=== PATIENT | male | born 1950 | race Caucasian/White ===

== ENCOUNTER → 2016-10-04 | Outpatient (CLI) | payer MEDICARE ==
[~2016-10-04] MED LIST: ASPI325T4 PO; ATOR10TA9 PO; CARV6.252 PO; LISI-167 PO
== END | disposition home or self-care (01) ==
LOC: WOUND 10:25
PROVIDERS: ATTEND Physician Assistant
DX: T81.31XD Disruption of external operation (surgical) wound, not elsewhere classified, subsequent encounter (principal); I73.9 Peripheral vascular disease, unspecified; I10 Essential (primary) hypertension; A48.0 Gas gangrene; I25.2 Old myocardial infarction; I25.10 Atherosclerotic heart disease of native coronary artery without angina pectoris; E78.5 Hyperlipidemia, unspecified; F17.210 Nicotine dependence, cigarettes, uncomplicated; Z72.89 Other problems related to lifestyle; Y83.8 Other surgical procedures as the cause of abnormal reaction of the patient, or of later complication, without mention of misadventure at the time of the procedure
CPT/HCPCS: 97605

== ENCOUNTER → 2016-10-11 | Outpatient (CLI) | payer MEDICARE | END | disposition home or self-care (01) | LOC: WOUND 09:44 | PROVIDERS: ATTEND Physician Assistant | DX: T81.31XD Disruption of external operation (surgical) wound, not elsewhere classified, subsequent encounter (principal); I73.9 Peripheral vascular disease, unspecified; I25.10 Atherosclerotic heart disease of native coronary artery without angina pectoris; I25.2 Old myocardial infarction; I10 Essential (primary) hypertension; E78.5 Hyperlipidemia, unspecified; F17.210 Nicotine dependence, cigarettes, uncomplicated; Z72.89 Other problems related to lifestyle; Y83.8 Other surgical procedures as the cause of abnormal reaction of the patient, or of later complication, without mention of misadventure at the time of the procedure | CPT/HCPCS: 11042; 11045; 97605 ==

== ENCOUNTER → 2016-10-25 | Outpatient (CLI) | payer MEDICARE | END | disposition home or self-care (01) | LOC: WOUND 10:41 | PROVIDERS: ATTEND Internal Medicine | DX: T81.31XD Disruption of external operation (surgical) wound, not elsewhere classified, subsequent encounter (principal); I73.9 Peripheral vascular disease, unspecified; I25.10 Atherosclerotic heart disease of native coronary artery without angina pectoris; I25.2 Old myocardial infarction; E78.5 Hyperlipidemia, unspecified; E43 Unspecified severe protein-calorie malnutrition; Z68.37 Body mass index [BMI] 37.0-37.9, adult; I11.0 Hypertensive heart disease with heart failure; I50.30 Unspecified diastolic (congestive) heart failure; F17.210 Nicotine dependence, cigarettes, uncomplicated; Z72.89 Other problems related to lifestyle; Y83.8 Other surgical procedures as the cause of abnormal reaction of the patient, or of later complication, without mention of misadventure at the time of the procedure | CPT/HCPCS: 11042; 11045 ==

== ENCOUNTER 2016-10-27 10:01 | Inpatient (IN) | payer MEDICARE ==
[~2016-10-27] VITALS: Ht 180.3 cm; Wt 122.3 kg
[2016-10-27] MEDS ORDERED: SODIUM CHLORIDE 0.9% 1,000 ML IV ONE (11:13)
[2016-10-27] MEDS ORDERED: HYDROmorphone 1 MG/ML, 1ML IVPush PRN (11:30)
[2016-10-27] MEDS ORDERED: ERTAPENEM 1 GM in SODIUM CHLORIDE 0.9% 50 ML IV ONE (11:30)
[2016-10-27] MEDS ORDERED: HYDROmorphone 1 MG/ML, 1ML ONE (12:03)
[2016-10-27 12:34] LABS: ASPARTATE AMINO TRANSFERASE 16 U/L (15-37); BLOOD UREA NITROGEN 17 mg/dL (7-18)
[2016-10-27] MEDS ORDERED: ONDANSETRON 2MG/ML, 2ML ONE (12:40)
[2016-10-27] MEDS ORDERED: ONDANSETRON 2MG/ML, 2ML IVPush ONE (13:00)
[2016-10-27] MEDS ORDERED: POLYETHYLENE GLYCOL 17 GM PACKET PO PRN (14:00)
[2016-10-27] MEDS ORDERED: VANCOMYCIN PER PHARMACY MC PRN (14:00)
[2016-10-27] MEDS ORDERED: ENALAPRILAT 1.25 MG/ML, 2ML IVPush PRN (14:00)
[2016-10-27] MEDS ORDERED: ACETAMINOPHEN 325 MG TABLET PO PRN (14:00)
[2016-10-27] MEDS ORDERED: VANCOMYCIN PMX 1GM/200ML 200 ML IV ONE (14:00)
[2016-10-27] MEDS: SODIUM CHLORIDE 0.9% 1,000 ML IV SCH (15:34)
[2016-10-27] MEDS ORDERED: ENOXAPARIN 40 MG/0.4 ML ONE (15:40)
[2016-10-27] MEDS ORDERED: NICOTINE 21 MG/24 HR PATCH.TD24 ONE (15:40)
[2016-10-27] MEDS: NICOTINE 21 MG/24 HR PATCH.TD24 TD SCH (15:44)
[2016-10-27] MEDS: ENOXAPARIN 40 MG/0.4 ML SQ SCH (15:44)
[2016-10-27] MEDS: AMPICILLIN/SULBACTAM 3 GM in SODIUM CHLORIDE 0.9% 100 ML IV SCH (15:46)
[2016-10-27] MEDS ORDERED: MORPHINE SULFATE 4 MG/ML, 1ML ONE (15:51)
[2016-10-27] MEDS: MORPHINE SULFATE 4 MG/ML, 1ML IVPush PRN ×3 (15:53→23:37)
[2016-10-27 18:04] VITALS: BP 101/65
[2016-10-27 19:43] VITALS: BP 104/62
[2016-10-27] MEDS ORDERED: PHARMACOKINETIC MONITORING MC PRN (20:00)
[2016-10-27] MEDS: ATORVASTATIN 10 MG TABLET PO SCH (21:50)
[2016-10-27] MEDS: CARVEDILOL 6.25 MG TABLET PO SCH (21:50)
[2016-10-27] MEDS: VANCOMYCIN 2,000 MG in SODIUM CHLORIDE 0.9% 500 ML IV SCH (23:29)
[2016-10-28 01:27] VITALS: BP 102/63
[2016-10-28] MEDS: AMPICILLIN/SULBACTAM 3 GM in SODIUM CHLORIDE 0.9% 100 ML IV SCH ×4 (01:35→19:45)
[2016-10-28 05:58] LABS: BLOOD UREA NITROGEN 15 mg/dL (7-18)
[2016-10-28 06:02] LABS: ASPARTATE AMINO TRANSFERASE 13 U/L (15-37)
[2016-10-28 07:24] VITALS: BP 101/62
[2016-10-28] MEDS: LISINOPRIL 5 MG TABLET PO SCH (09:00)
[2016-10-28] MEDS: PANTOPRAZOLE 40 MG IV IVP SCH (09:31)
[2016-10-28] MEDS: CARVEDILOL 6.25 MG TABLET PO SCH ×2 (09:31→19:46)
[2016-10-28] MEDS: ONDANSETRON 2MG/ML, 2ML IVP PRN (09:46)
[2016-10-28] MEDS ORDERED: BUPIVACAINE/PF 0.25% ONE (10:37)
[2016-10-28] MEDS ORDERED: ROPIvacaine/PF 0.5%, 30 ML ONE (10:37)
[2016-10-28] MEDS ORDERED: BUPIVACAINE/PF-EPI 0.25% 1:200K ONE (10:49)
[2016-10-28] MEDS ORDERED: ONDANSETRON 2MG/ML, 2ML ONE (11:15)
[2016-10-28] MEDS ORDERED: ROCURONIUM 10 MG/ML ONE (11:15)
[2016-10-28] MEDS ORDERED: PROPOFOL 10 MG/ML, 20ML ONE (11:15)
[2016-10-28] MEDS ORDERED: NEOSTIGMINE 1 MG/ML, 10ML ONE (11:15)
[2016-10-28] MEDS ORDERED: GLYCOPYRROLATE 0.2MG/1ML ONE (11:15)
[2016-10-28 12:58] VITALS: BP 112/59
[2016-10-28] MEDS: ENOXAPARIN 40 MG/0.4 ML SQ SCH (14:00)
[2016-10-28] MEDS: VANCOMYCIN 2,000 MG in SODIUM CHLORIDE 0.9% 500 ML IV SCH (14:21)
[2016-10-28] MEDS: NICOTINE 21 MG/24 HR PATCH.TD24 TD SCH (14:22)
[2016-10-28] MEDS: SODIUM CHLORIDE 0.9% 1,000 ML IV SCH (15:00)
[2016-10-28 19:20] VITALS: BP 118/67
[2016-10-28] MEDS: ATORVASTATIN 10 MG TABLET PO SCH (19:46)
[2016-10-29 00:05] VITALS: BP 116/70
[2016-10-29] MEDS: AMPICILLIN/SULBACTAM 3 GM in SODIUM CHLORIDE 0.9% 100 ML IV SCH ×4 (02:02→19:41)
[2016-10-29 05:43] LABS: ASPARTATE AMINO TRANSFERASE 13 U/L (15-37); BLOOD UREA NITROGEN 14 mg/dL (7-18)
[2016-10-29 06:33] VITALS: BP 147/70
[2016-10-29] MEDS: PANTOPRAZOLE 40 MG IV IVP SCH (08:44)
[2016-10-29] MEDS: LISINOPRIL 5 MG TABLET PO SCH (08:45)
[2016-10-29] MEDS: CARVEDILOL 6.25 MG TABLET PO SCH ×2 (08:45→21:51)
[2016-10-29] MEDS: VANCOMYCIN 2,000 MG in SODIUM CHLORIDE 0.9% 500 ML IV SCH (10:50)
[2016-10-29 14:28] VITALS: BP 147/79
[2016-10-29] MEDS: NICOTINE 21 MG/24 HR PATCH.TD24 TD SCH (14:47)
[2016-10-29] MEDS: ENOXAPARIN 40 MG/0.4 ML SQ SCH (14:47)
[2016-10-29] MEDS: HYDROcodone/APAP 5/325 TABLET PO PRN (14:47)
[2016-10-29] MEDS: MORPHINE SULFATE 4 MG/ML, 1ML IVPush PRN ×3 (15:19→22:47)
[2016-10-29 21:50] VITALS: BP 139/81
[2016-10-29] MEDS: ATORVASTATIN 10 MG TABLET PO SCH (21:51)
[2016-10-30 00:52] VITALS: BP 126/74
[2016-10-30] MEDS: AMPICILLIN/SULBACTAM 3 GM in SODIUM CHLORIDE 0.9% 100 ML IV SCH ×4 (01:48→21:18)
[2016-10-30 02:15] LABS: BLOOD UREA NITROGEN 15 mg/dL (7-18)
[2016-10-30] MEDS: VANCOMYCIN 2,000 MG in SODIUM CHLORIDE 0.9% 500 ML IV SCH ×2 (02:32→22:02)
[2016-10-30] MEDS: MORPHINE SULFATE 4 MG/ML, 1ML IVPush PRN ×3 (02:32→21:18)
[2016-10-30 07:25] VITALS: BP 145/81
[2016-10-30] MEDS: CARVEDILOL 6.25 MG TABLET PO SCH ×2 (08:34→21:28)
[2016-10-30] MEDS: PANTOPRAZOLE 40 MG IV IVP SCH (08:34)
[2016-10-30] MEDS: LISINOPRIL 5 MG TABLET PO SCH (08:34)
[2016-10-30] MEDS: HYDROcodone/APAP 5/325 TABLET PO PRN ×3 (13:15→22:46)
[2016-10-30] MEDS: NICOTINE 21 MG/24 HR PATCH.TD24 TD SCH (13:16)
[2016-10-30] MEDS: ENOXAPARIN 40 MG/0.4 ML SQ SCH (13:16)
[2016-10-30 13:47] VITALS: BP 128/79
[2016-10-30] MEDS: ONDANSETRON 2MG/ML, 2ML IVP PRN (15:32)
[2016-10-30 20:41] VITALS: BP 132/76
[2016-10-30] MEDS: ATORVASTATIN 10 MG TABLET PO SCH (21:28)
[2016-10-31] MEDS: MORPHINE SULFATE 4 MG/ML, 1ML IVPush PRN ×3 (00:13→20:14)
[2016-10-31] MEDS: AMPICILLIN/SULBACTAM 3 GM in SODIUM CHLORIDE 0.9% 100 ML IV SCH ×4 (02:03→21:27)
[2016-10-31] MEDS: HYDROcodone/APAP 5/325 TABLET PO PRN ×4 (02:55→20:17)
[2016-10-31 03:01] VITALS: BP 127/78
[2016-10-31 08:38] VITALS: BP 148/82
[2016-10-31] MEDS: PANTOPRAZOLE 40 MG IV IVP SCH (08:52)
[2016-10-31] MEDS: LISINOPRIL 5 MG TABLET PO SCH (08:52)
[2016-10-31] MEDS: CARVEDILOL 6.25 MG TABLET PO SCH ×2 (08:53→20:16)
[2016-10-31] MEDS: NICOTINE 21 MG/24 HR PATCH.TD24 TD SCH (14:34)
[2016-10-31] MEDS: ENOXAPARIN 40 MG/0.4 ML SQ SCH (14:35)
[2016-10-31 14:41] VITALS: BP 153/78
[2016-10-31] MEDS: VANCOMYCIN 2,000 MG in SODIUM CHLORIDE 0.9% 500 ML IV SCH (17:39)
[2016-10-31 20:17] VITALS: BP 153/84
[2016-10-31] MEDS: ATORVASTATIN 10 MG TABLET PO SCH (20:17)
[2016-10-31] MEDS: TEMAZEPAM 15 MG CAPSULE PO PRN (22:56)
[2016-10-31] MEDS: metroNIDAZOLE 500 MG TABLET PO SCH (23:16)
[2016-11-01 01:53] VITALS: BP 155/83
[2016-11-01] MEDS: AMPICILLIN/SULBACTAM 3 GM in SODIUM CHLORIDE 0.9% 100 ML IV SCH ×3 (03:00→18:25)
[2016-11-01] MEDS: MORPHINE SULFATE 4 MG/ML, 1ML IVPush PRN ×6 (03:06→23:18)
[2016-11-01 06:43] VITALS: BP 136/73
[2016-11-01] MEDS: metroNIDAZOLE 500 MG TABLET PO SCH ×3 (08:02→20:33)
[2016-11-01] MEDS: LISINOPRIL 5 MG TABLET PO SCH (08:02)
[2016-11-01] MEDS: CARVEDILOL 6.25 MG TABLET PO SCH ×2 (08:02→22:52)
[2016-11-01] MEDS: PANTOPRAZOLE 40 MG IV IVP SCH (08:02)
[2016-11-01] MEDS ORDERED: FENTANYL PF 250 MCG/5ML ONE (10:23)
[2016-11-01] MEDS ORDERED: KETAMINE 10 MG/ML, 20ML ONE (10:23)
[2016-11-01] MEDS ORDERED: MIDAZOLAM 1 MG/ML, 2ML ONE (10:23)
[2016-11-01] MEDS ORDERED: HYDROmorphone 2 MG/ML, 1ML ONE ×3 (10:53→12:18)
[2016-11-01] MEDS ORDERED: hydrALAzine 20 MG/ML, 1ML IV PRN (11:00)
[2016-11-01] MEDS ORDERED: EPHEDRINE 50 MG/ML, 1ML IVPush PRN (11:00)
[2016-11-01] MEDS ORDERED: METOPROLOL 1 MG/ML, 5ML IV PRN (11:00)
[2016-11-01] MEDS ORDERED: ONDANSETRON 2MG/ML, 2ML IVPush PRN (11:00)
[2016-11-01] MEDS ORDERED: MIDAZOLAM 1 MG/ML, 2ML IV PRN (11:00)
[2016-11-01] MEDS ORDERED: ACETAMINOPHEN 325 MG TABLET PO PRN (11:00)
[2016-11-01] MEDS ORDERED: GLYCOPYRROLATE 0.2MG/1ML ONE (11:15)
[2016-11-01] MEDS ORDERED: NEOSTIGMINE 1 MG/ML, 10ML ONE (11:15)
[2016-11-01] MEDS ORDERED: ONDANSETRON 2MG/ML, 2ML ONE (11:15)
[2016-11-01] MEDS ORDERED: ROCURONIUM 10 MG/ML ONE (11:15)
[2016-11-01] MEDS ORDERED: PROPOFOL 10 MG/ML, 20ML ONE (11:15)
[2016-11-01] MEDS ORDERED: PROMETHAZINE 25 MG/ML, 1ML ONE (11:35)
[2016-11-01] MEDS ORDERED: FENTANYL PF 100 MCG/2ML ONE ×2 (11:35→12:18)
[2016-11-01] MEDS ORDERED: OXYcodone 5 MG/5 ML ORAL.SOL UDC ONE (11:36)
[2016-11-01] MEDS: FENTANYL PF 100 MCG/2ML IV PRN ×4 (11:53→12:40)
[2016-11-01] MEDS: OXYcodone 5 MG/5 ML ORAL.SOL UDC PO PRN ×2 (11:55→16:20)
[2016-11-01] MEDS: HYDROmorphone 1 MG/ML, 1ML IV PRN ×8 (12:03→15:21)
[2016-11-01] MEDS ORDERED: ACETAMINOPHEN 650 MG/20.3 ML UDC ONE (12:41)
[2016-11-01] MEDS ORDERED: ACETAMINOPHEN 325 MG TABLET ONE (12:42)
[2016-11-01] MEDS ORDERED: PROMETHAZINE 25 MG/ML, 1ML IV PRN (13:00)
[2016-11-01 13:15] VITALS: BP 149/79
[2016-11-01] MEDS: VANCOMYCIN 2,000 MG in SODIUM CHLORIDE 0.9% 500 ML IV SCH (13:18)
[2016-11-01] MEDS: ENOXAPARIN 40 MG/0.4 ML SQ SCH (13:27)
[2016-11-01] MEDS: NICOTINE 21 MG/24 HR PATCH.TD24 TD SCH (14:29)
[2016-11-01 18:44] VITALS: BP 138/88
[2016-11-01] MEDS: ATORVASTATIN 10 MG TABLET PO SCH (20:33)
[2016-11-01] MEDS: TEMAZEPAM 15 MG CAPSULE PO PRN (22:52)
[2016-11-01 23:18] VITALS: BP 124/64
[2016-11-02] MEDS: AMPICILLIN/SULBACTAM 3 GM in SODIUM CHLORIDE 0.9% 100 ML IV SCH ×4 (00:48→19:05)
[2016-11-02] MEDS: MORPHINE SULFATE 4 MG/ML, 1ML IVPush PRN ×2 (02:14→05:21)
[2016-11-02 02:15] VITALS: BP 145/73
[2016-11-02] MEDS: VANCOMYCIN 2,000 MG in SODIUM CHLORIDE 0.9% 500 ML IV SCH (05:19)
[2016-11-02 06:33] LABS: BLOOD UREA NITROGEN 7 mg/dL (7-18)
[2016-11-02 08:17] VITALS: BP 131/77
[2016-11-02] MEDS: POLYETHYLENE GLYCOL 17 GM PACKET PO SCH (09:00)
[2016-11-02] MEDS: PANTOPRAZOLE 40 MG IV IVP SCH (09:09)
[2016-11-02] MEDS: CARVEDILOL 6.25 MG TABLET PO SCH ×2 (09:10→20:16)
[2016-11-02] MEDS: LISINOPRIL 5 MG TABLET PO SCH (09:10)
[2016-11-02] MEDS: metroNIDAZOLE 500 MG TABLET PO SCH ×3 (09:10→20:16)
[2016-11-02] MEDS ORDERED: PROPOFOL 10 MG/ML, 20ML ONE (10:15)
[2016-11-02] MEDS ORDERED: ONDANSETRON 2MG/ML, 2ML ONE (10:15)
[2016-11-02] MEDS ORDERED: GLYCOPYRROLATE 0.2MG/1ML ONE (10:15)
[2016-11-02] MEDS ORDERED: NEOSTIGMINE 1 MG/ML, 10ML ONE (10:15)
[2016-11-02] MEDS ORDERED: ROCURONIUM 10 MG/ML ONE (10:15)
[2016-11-02 13:31] VITALS: BP 124/70
[2016-11-02] MEDS: ENOXAPARIN 40 MG/0.4 ML SQ SCH (13:47)
[2016-11-02] MEDS: NICOTINE 21 MG/24 HR PATCH.TD24 TD SCH (13:47)
[2016-11-02] MEDS: TEMAZEPAM 15 MG CAPSULE PO PRN (20:15)
[2016-11-02] MEDS: ATORVASTATIN 10 MG TABLET PO SCH (20:16)
[2016-11-02 20:26] VITALS: BP 158/80
[2016-11-03 02:44] VITALS: BP 135/77
[2016-11-03] MEDS: AMPICILLIN/SULBACTAM 3 GM in SODIUM CHLORIDE 0.9% 100 ML IV SCH ×4 (02:46→20:59)
[2016-11-03 06:59] VITALS: BP 119/71
[2016-11-03] MEDS: PANTOPRAZOLE 40 MG IV IVP SCH (08:31)
[2016-11-03] MEDS: metroNIDAZOLE 500 MG TABLET PO SCH ×3 (08:32→20:59)
[2016-11-03] MEDS: LISINOPRIL 5 MG TABLET PO SCH (08:32)
[2016-11-03] MEDS: POLYETHYLENE GLYCOL 17 GM PACKET PO SCH (08:33)
[2016-11-03] MEDS: CARVEDILOL 6.25 MG TABLET PO SCH ×2 (08:33→20:59)
[2016-11-03] MEDS: ONDANSETRON 2MG/ML, 2ML IVP PRN (12:48)
[2016-11-03] MEDS: ENOXAPARIN 40 MG/0.4 ML SQ SCH (14:46)
[2016-11-03] MEDS: NICOTINE 21 MG/24 HR PATCH.TD24 TD SCH (14:46)
[2016-11-03] MEDS: MORPHINE SULFATE 4 MG/ML, 1ML IVPush PRN (15:07)
[2016-11-03 16:12] VITALS: BP 114/66
[2016-11-03] MEDS: VANCOMYCIN 2,000 MG in SODIUM CHLORIDE 0.9% 500 ML IV SCH ×2 (18:27)
[2016-11-03 20:08] VITALS: BP 133/70
[2016-11-03] MEDS: ATORVASTATIN 10 MG TABLET PO SCH (20:59)
[2016-11-03] MEDS: TEMAZEPAM 15 MG CAPSULE PO PRN (23:31)
[2016-11-04] MEDS: AMPICILLIN/SULBACTAM 3 GM in SODIUM CHLORIDE 0.9% 100 ML IV SCH ×5 (02:00→19:43)
[2016-11-04 02:28] VITALS: BP 117/70
[2016-11-04 06:44] VITALS: BP 133/77
[2016-11-04] MEDS: POLYETHYLENE GLYCOL 17 GM PACKET PO SCH (08:52)
[2016-11-04] MEDS: PANTOPRAZOLE 40 MG IV IVP SCH (08:56)
[2016-11-04] MEDS: CARVEDILOL 6.25 MG TABLET PO SCH ×2 (08:57→19:54)
[2016-11-04] MEDS: metroNIDAZOLE 500 MG TABLET PO SCH ×3 (08:57→19:51)
[2016-11-04] MEDS: LISINOPRIL 5 MG TABLET PO SCH (08:57)
[2016-11-04] MEDS: VANCOMYCIN 2,000 MG in SODIUM CHLORIDE 0.9% 500 ML IV SCH (12:13)
[2016-11-04 12:30] VITALS: BP 100/69
[2016-11-04] MEDS: NICOTINE 21 MG/24 HR PATCH.TD24 TD SCH (14:29)
[2016-11-04] MEDS: ENOXAPARIN 40 MG/0.4 ML SQ SCH (14:29)
[2016-11-04] MEDS: ATORVASTATIN 10 MG TABLET PO SCH (19:51)
[2016-11-04 19:54] VITALS: BP 133/73
[2016-11-04] MEDS: TEMAZEPAM 15 MG CAPSULE PO PRN (23:57)
[2016-11-05 00:01] VITALS: BP 115/62
[2016-11-05] MEDS: AMPICILLIN/SULBACTAM 3 GM in SODIUM CHLORIDE 0.9% 100 ML IV SCH ×3 (02:10→14:14)
[2016-11-05] MEDS: VANCOMYCIN 2,000 MG in SODIUM CHLORIDE 0.9% 500 ML IV SCH (04:57)
[2016-11-05 07:20] VITALS: BP 141/73
[2016-11-05] MEDS: PANTOPRAZOLE 40 MG IV IVP SCH (08:11)
[2016-11-05] MEDS: POLYETHYLENE GLYCOL 17 GM PACKET PO SCH (09:00)
[2016-11-05] MEDS: metroNIDAZOLE 500 MG TABLET PO SCH ×3 (10:10→22:05)
[2016-11-05] MEDS: CARVEDILOL 6.25 MG TABLET PO SCH ×2 (10:11→22:05)
[2016-11-05] MEDS: LISINOPRIL 5 MG TABLET PO SCH (10:11)
[2016-11-05 13:25] VITALS: BP 111/69
[2016-11-05] MEDS: ENOXAPARIN 40 MG/0.4 ML SQ SCH (14:15)
[2016-11-05] MEDS: NICOTINE 21 MG/24 HR PATCH.TD24 TD SCH (14:25)
[2016-11-05] MEDS ORDERED: HYDROcodone/APAP 10/325 MG TABLET PO PRN (16:30)
[2016-11-05 19:02] VITALS: BP 137/65
[2016-11-05] MEDS: ATORVASTATIN 10 MG TABLET PO SCH (22:05)
[2016-11-05] MEDS: HYDROcodone/APAP 10/325 MG TABLET PO PRN (22:10)
[2016-11-06] MEDS: VANCOMYCIN 2,000 MG in SODIUM CHLORIDE 0.9% 500 ML IV SCH ×2 (01:13→10:20)
[2016-11-06] MEDS: AMPICILLIN/SULBACTAM 3 GM in SODIUM CHLORIDE 0.9% 100 ML IV SCH ×3 (02:00→12:03)
[2016-11-06 02:23] VITALS: BP 133/73
[2016-11-06] MEDS: HYDROcodone/APAP 10/325 MG TABLET PO PRN ×3 (02:27→12:29)
[2016-11-06 07:48] VITALS: BP 143/79
[2016-11-06] MEDS: POLYETHYLENE GLYCOL 17 GM PACKET PO SCH (08:32)
[2016-11-06] MEDS: metroNIDAZOLE 500 MG TABLET PO SCH (08:35)
[2016-11-06] MEDS: PANTOPRAZOLE 40 MG IV IVP SCH (08:36)
[2016-11-06] MEDS: LISINOPRIL 5 MG TABLET PO SCH (08:36)
[2016-11-06] MEDS: CARVEDILOL 6.25 MG TABLET PO SCH (08:36)
[2016-11-06] MEDS ORDERED: HYDR-3241 PO (10:33)
[2016-11-06] MEDS ORDERED: NICO1PAT5 TD (10:33)
[2016-11-06] MEDS ORDERED: POLY17PO5 PO (10:33)
[2016-11-06] MEDS ORDERED: METR500T PO (10:33)
[2016-11-06] MEDS ORDERED: LISI5TAB7 PO (10:33)
[2016-11-06] MEDS ORDERED: TEMA15CA6 PO (10:33)
[2016-11-06 12:55] VITALS: BP 146/78
== END 2016-11-06 13:40 | DRG 474 ==
LOC: OR 12:31 → ORIP 12:32 → OR 12:47 → SUATTDRO 13:01 → 4EST 17:31 → 4NOR 10-29 18:43
PROVIDERS: ADMIT Family Medicine; ATTEND Internal Medicine
PROC: 0Y6H0Z3 Detachment at Right Lower Leg, Low, Open Approach (ICD-10-PCS; principal; 2016-10-28 11:00)
PROC: 0Y6H0Z1 Detachment at Right Lower Leg, High, Open Approach (ICD-10-PCS; 2016-11-01)
DX: T87.43 Infection of amputation stump, right lower extremity (principal); E43 Unspecified severe protein-calorie malnutrition; L03.115 Cellulitis of right lower limb; I50.32 Chronic diastolic (congestive) heart failure; A04.7 Enterocolitis due to Clostridium difficile; B95.62 Methicillin resistant Staphylococcus aureus infection as the cause of diseases classified elsewhere; E11.51 Type 2 diabetes mellitus with diabetic peripheral angiopathy without gangrene; I73.9 Peripheral vascular disease, unspecified; I25.10 Atherosclerotic heart disease of native coronary artery without angina pectoris; E66.9 Obesity, unspecified; I11.0 Hypertensive heart disease with heart failure; I87.2 Venous insufficiency (chronic) (peripheral); E78.5 Hyperlipidemia, unspecified; I25.2 Old myocardial infarction; Z89.411 Acquired absence of right great toe; Z68.37 Body mass index [BMI] 37.0-37.9, adult; Z80.0 Family history of malignant neoplasm of digestive organs; Z82.49 Family history of ischemic heart disease and other diseases of the circulatory system; Z83.3 Family history of diabetes mellitus; Z87.891 Personal history of nicotine dependence; Z95.5 Presence of coronary angioplasty implant and graft; Z95.828 Presence of other vascular implants and grafts; Z91.041 Radiographic dye allergy status; Z88.8 Allergy status to other drugs, medicaments and biological substances
CPT/HCPCS: 36415; 80048; 80053; 80202; 83605; 83735; 84100; 84145; 85025; 85651; 87040; 87070; 87077; 87186; 87205; 87324; 88307; 88311; 96361; 96374; 96375; J0295; J1170; J1335; J1650; J2250; J2270; J2405; J2550; J2704; J2710; J2795; J3010; J3370; J3490; C9113; J7030; J7040